=== PATIENT | male | born 1980 | race Caucasian/White ===

== ENCOUNTER 2017-03-16 03:00 | Observation (INO) | payer OTHER ==
[2017-03-16 03:28] VITALS: RESP 18
[2017-03-16] MEDS ORDERED: ASPIRIN 81 MG CHEW PO STA (03:35)
[2017-03-16] MEDS ORDERED: LISINOPRIL 10 MG TAB PO STA (03:36)
--- NOTE | 2017-03-16 03:39 | ED ---
Recheck HPI - General Source: patient, RN notes reviewed Mode of arrival: ambulatory Limitations: no limitations <Jeremie Beltran - Last Filed: 03/16/17 03:37> <Keyon Astorga - Last Filed: 03/16/17 05:31> - General Chief Complaint: Recheck/Abnormal Lab/Rx Stated Complaint: Hypertension Time Seen by Provider: 03/16/17 03:31 - History of Present Illness Initial Comments: this is a 36-year-old male presents emergency Department chief complaint of hypertension, chest tightness. Patient states that he checked his blood pressure this evening because he felt very flushed in his face. Patient states this is placed on the past was had high blood pressure. Patient states that he used to be on medication that he is not exactly sure what it was he states this started over the now maybe Lopressor or lisinopril. Patient states a this dietary modifications and that he got off his blood pressure medication. Patient does state at this time he has a little bit of chest pressure or tightness and which she contributes this to using a Rototiller today. Patient denies any shortness of breath, headache, dizziness, nausea, vomiting. Patient states that the has no history of hyperlipidemia, diabetes or smoking history. Patient states he does not have a family history heart disease. (Jeremie Beltran) - Related Data Allergies Allergy/AdvReac Type Severity Reaction Status Date / Time Iodine and Iodide Containing Allergy Nausea & Verified 03/16/17 03:28 Produc Vomiting Review of Systems ROS Other: All systems not noted in ROS Statement are negative. <Jeremie Beltran - Last Filed: 03/16/17 03:37> ROS Other: All systems not noted in ROS Statement are negative. <Keyon Astorga - Last Filed: 03/16/17 05:31> ROS Statement: Those systems with pertinent positive or pertinent negative responses have been documented in the HPI. Past Medical History Past Medical History: Hypertension History of Any Multi-Drug Resistant Organisms: None Reported Past Surgical History: No Surgical Hx Reported Past Psychological History: Anxiety Smoking Status: Never smoker Past Alcohol Use History: Heavy Past Drug Use History: None Reported <Jeremie Beltran - Last Filed: 03/16/17 03:37> General Exam Limitations: no limitations General appearance: alert, in no apparent distress Neck exam: Present: normal inspection, full ROM. Absent: tenderness, meningismus, lymphadenopathy Respiratory exam: Present: normal lung sounds bilaterally. Absent: respiratory distress, wheezes, rales, rhonchi, stridor, chest wall tenderness Cardiovascular Exam: Present: regular rate, normal rhythm, normal heart sounds. Absent: systolic murmur, diastolic murmur, rubs, gallop, clicks GI/Abdominal exam: Present: soft, normal bowel sounds. Absent: distended, tenderness, guarding, rebound, rigid Neurological exam: Present: alert, oriented X3, CN II-XII intact <Jeremie Beltran - Last Filed: 03/16/17 03:37> Medical Decision Making <Jeremie Beltran - Last Filed: 03/16/17 03:37> - Lab Data Result diagrams: 03/16/17 03:50 03/16/17 03:50 - Radiology Data Radiology results: image reviewed (Chest x-ray shows no definite focal consolidation) <Keyon Astorga - Last Filed: 03/16/17 05:31> - Medical Decision Making Patient reexamined and resting comfortably in bed. Patient symptom-free at this time. Patient updated on results and plan. Case discussed with practitioner project manager/team coach, who will admit for Dr. Shetty, covering for hospital call. ( Keyon Astorga) - Lab Data Lab Results 03/16/17 03/16/17 03/16/17 Range/Units 03:50 03:50 03:50 WBC 9.8 (3.8-10.6) k/uL RBC 5.11 (4.30-5.90) m/uL Hgb 16.4 (13.0-17.5) gm/dL Hct 46.8 (39.0-53.0) % MCV 91.6 (80.0-100.0) fL MCH 32.1 (25.0-35.0) pg MCHC 35.0 (31.0-37.0) g/dL RDW 12.8 (11.5-15.5) % Plt Count 328 (150-450) k/uL Neutrophils % 64 % Lymphocytes % 29 % Monocytes % 6 % Eosinophils % 0 % Basophils % 0 % Neutrophils # 6.3 (1.3-7.7) k/uL Lymphocytes # 2.8 (1.0-4.8) k/uL Monocytes # 0.5 (0-1.0) k/uL Eosinophils # 0.0 (0-0.7) k/uL Basophils # 0.0 (0-0.2) k/uL PT (9.0-12.0) sec INR (<1.1) APTT (22.0-30.0) sec Sodium 141 (137-145) mmol/L Potassium 4.2 (3.5-5.1) mmol/L Chloride 102 (98-107) mmol/L Carbon Dioxide 24 (22-30) mmol/L Anion Gap 15 mmol/L BUN 14 (9-20) mg/dL Creatinine 0.92 (0.66-1.25) mg/dL Est GFR (MDRD) Af Amer >60 (>60 ml/min/1.73 sqM) Est GFR (MDRD) Non-Af >60 (>60 ml/min/1.73 sqM) Glucose 113 H (74-99) mg/dL Calcium 9.6 (8.4-10.2) mg/dL Magnesium 1.6 (1.6-2.3) mg/dL Total Bilirubin 0.6 (0.2-1.3) mg/dL AST 22 (17-59) U/L ALT 38 (21-72) U/L Alkaline Phosphatase 60 (38-126) U/L Total Creatine Kinase 107 (55-170) U/L CK-MB (CK-2) 0.9 (0.0-2.4) ng/mL CK-MB (CK-2) Rel Index 0.8 Troponin I <0.012 (0.000-0.034) ng/mL Total Protein 7.8 (6.3-8.2) g/dL Albumin 4.7 (3.5-5.0) g/dL 03/16/17 Range/Units 03:50 WBC (3.8-10.6) k/uL RBC (4.30-5.90) m/uL Hgb (13.0-17.5) gm/dL Hct (39.0-53.0) % MCV (80.0-100.0) fL MCH (25.0-35.0) pg MCHC (31.0-37.0) g/dL RDW (11.5-15.5) % Plt Count (150-450) k/uL Neutrophils % % Lymphocytes % % Monocytes % % Eosinophils % % Basophils % % Neutrophils # (1.3-7.7) k/uL Lymphocytes # (1.0-4.8) k/uL Monocytes # (0-1.0) k/uL Eosinophils # (0-0.7) k/uL Basophils # (0-0.2) k/uL PT 11.2 (9.0-12.0) sec INR 1.1 (<1.1) APTT 24.2 (22.0-30.0) sec Sodium (137-145) mmol/L Potassium (3.5-5.1) mmol/L Chloride (98-107) mmol/L Carbon Dioxide (22-30) mmol/L Anion Gap mmol/L BUN (9-20) mg/dL Creatinine (0.66-1.25) mg/dL Est GFR (MDRD) Af Amer (>60 ml/min/1.73 sqM) Est GFR (MDRD) Non-Af (>60 ml/min/1.73 sqM) Glucose (74-99) mg/dL Calcium (8.4-10.2) mg/dL Magnesium (1.6-2.3) mg/dL Total Bilirubin (0.2-1.3) mg/dL AST (17-59) U/L ALT (21-72) U/L Alkaline Phosphatase (38-126) U/L Total Creatine Kinase (55-170) U/L CK-MB (CK-2) (0.0-2.4) ng/mL CK-MB (CK-2) Rel Index Troponin I (0.000-0.034) ng/mL Total Protein (6.3-8.2) g/dL Albumin (3.5-5.0) g/dL 03/16/17 03:39 EKG performed at 3:28 normal sinus rhythm with a rate of 96 WA interval 134 QS duration 84 QT/QTC 348/439 (Jeremie Beltran) Disposition <Jeremie Beltran - Last Filed: 03/16/17 03:37> Decision Time: 05:31 <Keyon Astorga - Last Filed: 03/16/17 05:31> Clinical Impression: Hypertension, Chest pain Disposition: ADMITTED IP TO THIS [facility] Referrals: Nonstaff,Physician [Primary Care Provider] - 1-2 days
[2017-03-16 04:00] LABS: Basophils % (A) 0 %; Eosinophils % (A) 0 %; HCT 46.8 % (39.0-53.0); HDW 2.38; HGB 16.4 gm/dL (13.0-17.5); Luc # (Auto) 0.13; Luc % (Auto) 1; Lymphocytes # (A) 2.8 k/uL (1.0-4.8); Lymphocytes % (A) 29 %; MCH 32.1 pg (25.0-35.0); MCV 91.6 fL (80.0-100.0); Mean Platelet Volume 6.3; Monocytes # (A) 0.5 k/uL (0-1.0); Monocytes % (A) 6 %; Neutrophils # (A) 6.3 k/uL (1.3-7.7); Neutrophils % (A) 64 %; RBC 5.11 m/uL (4.30-5.90); RDW 12.8 % (11.5-15.5); WBC 9.8 k/uL (3.8-10.6); WBC (Perox) 9.13
[2017-03-16 04:10] LABS: ALT 38 U/L (21-72); AST 22 U/L (17-59); Alkaline Phosphatase 60 U/L (38-126); Anion Gap 15 mmol/L; Blood Urea Nitrogen 14 mg/dL (9-20); Calcium 9.6 mg/dL (8.4-10.2); Carbon Dioxide 24 mmol/L (22-30); Chloride 102 mmol/L (98-107); Glucose 113 mg/dL (74-99); Magnesium 1.6 mg/dL (1.6-2.3); Non-African American GFR(MDRD) >60 (>60 ml/min/1.73 sqM); Potassium 4.2 mmol/L (3.5-5.1); Sodium 141 mmol/L (137-145); Total Bilirubin 0.6 mg/dL (0.2-1.3); Total Protein 7.8 g/dL (6.3-8.2)
[2017-03-16 04:23] LABS: Creatine Kinase 107 U/L (55-170)
[2017-03-16 04:35] LABS: Creatine Kinase MB 0.9 ng/mL (0.0-2.4); Troponin I <0.012 ng/mL (0.000-0.034)
[2017-03-16 04:53] LABS: INR 1.1 (<1.1); Partial Thromboplastin Time 24.2 sec (22.0-30.0); Prothrombin Time 11.2 sec (9.0-12.0)
--- NOTE | 2017-03-16 05:21 | XR ---
Exam: XR CXR 2 VIEWS History: Chest pain. Comparison: None provided. Technique: Frontal and lateral views. Findings: There is mild thickening of interstitial lung markings at the lower lobes, right greater than left. This may be accentuated by low lung volumes. However, bronchiolitis or mild interstitial edema is not entirely ruled out. No definite focal consolidation. Cardiomediastinal silhouette is unremarkable. Impression: Question interstitial thickening or atelectasis in the lower lobes. No definite focal consolidation.
[2017-03-16] MEDS ORDERED: NITROGLYCERIN SL TABS 0.4 MG TAB SUBLINGUAL PRN (05:31)
[2017-03-16] MEDS: NITROGLYCERIN OINT 1 INCH/GM PACKET TOPICAL SCH ×2 (06:22→12:56)
[2017-03-16 11:06] LABS: Creatine Kinase 77 U/L (55-170)
[2017-03-16 11:19] LABS: Creatine Kinase MB 0.8 ng/mL (0.0-2.4); Troponin I <0.012 ng/mL (0.000-0.034)
[2017-03-16 11:55] VITALS: BP 127/79; PULSE 79; TEMP 98.3
--- NOTE | 2017-03-16 18:28 | P.HPIM ---
History of Present Illness H&P Date: 03/16/17 (dc summary) 36-year-old gentleman with previous diagnosis of hypertension however stopped taking his medication due to side effects comes in to the hospital with complains of chest pressure midsternal in location last about 2-5 minutes nonradiating in nature. Patient states that his blood pressure around that time was 180 systolic or 90 diastolic Denies having previous episodes of the symptoms EKG in the emergency room shows voltage criteria for LVH no other ST elevations or depressions were noted Troponins were negative During the time of my evaluation patient states that he is symptom-free Denies having headaches nausea vomiting diarrhea Patient does state that he has had some relief with nitroglycerin however no other typical features of chest pain were reported Review of Systems All systems: negative (Noted in HPI) Past Medical History Past Medical History: Hypertension History of Any Multi-Drug Resistant Organisms: None Reported Past Surgical History: No Surgical Hx Reported Past Anesthesia/Blood Transfusion Reactions: No Reported Reaction Past Psychological History: Anxiety Additional Psychological History / Comment(s): seasonal affective disorder - takes pristiq Smoking Status: Never smoker Past Alcohol Use History: Heavy Additional Past Alcohol Use History / Comment(s): pt states he went thru detox a month ago. he states his last drink was last week. denies sx of DT's Past Drug Use History: None Reported - Past Family History Father Family Medical History: Hypertension Medications and Allergies Home Medications Medication Instructions Recorded Confirmed Type Desvenlafaxine Succinate [Pristiq] 50 mg PO DAILY 03/16/17 03/16/17 History Dextroamphetamine/Amphetamine 20 mg PO TID 03/16/17 03/16/17 History [Adderall] Allergies Allergy/AdvReac Type Severity Reaction Status Date / Time Iodine and Iodide Containing Allergy Nausea & Verified 03/16/17 08:10 Produc Vomiting Physical Exam Vitals: Vital Signs Temp Pulse Pulse Resp BP BP Pulse Ox 03/16/17 11:52 98.3 F 79 18 127/79 94 L 03/16/17 07:46 97.6 F 90 18 142/81 95 03/16/17 06:34 88 18 03/16/17 06:08 97.9 F 90 18 149/96 95 03/16/17 05:19 98.4 F 90 18 144/95 03/16/17 04:49 88 18 146/97 96 03/16/17 04:19 88 18 158/91 97 03/16/17 03:51 92 18 155/102 97 03/16/17 03:22 97.9 F 98 18 165/110 99 Intake and Output 03/16/17 03/16/17 03/16/17 06:59 14:59 22:59 Intake Total 240 Balance 240 Intake: Oral 240 Other: Voiding Method Toilet Toilet Weight 95.254 kg Physical exam Gen. appearance oriented 3 in no distress Neck is supple no JVD Lungs good air entry clear to auscultation no rhonchi or wheezing Heart S1-S2 heard regular rate and rhythm no murmurs appreciated Abdomen is soft nontender no organomegaly bowel sounds are intact Neurologically cranial nerves II-12 grossly intact no focal motor or sensory deficits noted Skin no abnormalities appreciated Results CBC & Chem 7: 03/16/17 03:50 03/16/17 03:50 Labs: Abnormal Lab Results - Last 24 Hours (Table) 03/16/17 Range/Units 03:50 Glucose 113 H (74-99) mg/dL Thrombosis Risk Factor Assmnt - Choose All That Apply Each Factor Represents 1 point: Obesity (BMI >25) Thrombosis Risk Factor Assessment Total Risk Factor Score: 1 Thrombosis Risk Factor Assessment Level: Low Risk Assessment and Plan Plan: #1 atypical chest pain ACS is ruled out #2 accelerated hypertension with symptoms Plan Patient also has a history of alcohol overuse We'll start the patient on antihypertensive medication with some atypical features patient is recommended to follow-up with his primary care doctor or Dr. Jayden MALONE KH Would benefit from an outpatient stress test as patient does show voltage criteria and does have some underlying hypertension for longer of time and is not very physically active patient is discharged home in a stable condition was able to ambulate without any reproducibility of symptoms
[2017-03-17] MEDS ORDERED: ASPIRIN 325 MG TAB PO SCH (09:00)
--- NOTE | 2017-03-18 21:06 | CONS ---
Mr. Valdovinos is a 36-year-old gentleman who came to the emergency room with the complaint of hypertension. Patient gives a history that when he went home he was not feeling good; he was out of it; and he checked his blood pressure, which was 170/112. He was flushed. He had some tightness in the chest. Patient does have a prior history of hypertension. He took medication for a short time. Subsequently the patient stopped taking medication. He denied any headaches. He denies any exertional chest pain. He is moderately active physically. The patient does have a prior history of alcohol abuse, but he underwent a detoxification program about 6 weeks ago. The patient denies any prior history of myocardial infarction. He says he was given Lopressor and he did not like it , so he stopped taking it. The patient does not know about his cholesterol. Past medical history includes a history of hypertension, history of anxiety. SMOKING STATUS: Patient was never a smoker. PHYSICAL EXAMINATION AT PRESENT: This is a 36-year-old mildly obese gentleman who does not appear to be in any acute distress. The patient's blood pressure is 127/79 mmHg. Heart rate is 80 per minute. HEAD/ENT: Examination is negative. Neck is supple. There is no increase in jugular venous pressure. Both the carotid pulses are felt. There is no bruit. Chest is symmetrical. HEART: The PMI is not felt. First and second heart sounds are normal. There is no evidence of any murmur. Lungs are clinically clear to auscultation and percussion. Abdomen is soft. Liver and spleen are not enlarged. Bowel sounds are heard. EXTREMITIES: Peripheral pulsations are 2+. EKG shows normal sinus rhythm without any acute ischemic changes. The patient's electrolytes are normal. Patient's 2 sets of troponins are normal. FINAL IMPRESSION: This patient was primarily admitted with uncontrolled hypertension. He had some atypical chest discomfort. Discussed the various treatment options with the patient. Patient can be discharged home on Lotrel 5/ 10 mg daily. We will follow up his blood pressure as an outpatient and subsequently the patient will be evaluated with a stress test. ANA
== END 2017-03-16 15:45 | disposition home or self-care (01) ==
LOC: EC 03:00 → 3OBS 05:31
PROVIDERS: ADMIT Hospitalist; ATTEND Hospitalist
DX: I10 Essential (primary) hypertension (principal); R07.89 Other chest pain; F41.9 Anxiety disorder, unspecified; F39 Unspecified mood [affective] disorder; Z82.49 Family history of ischemic heart disease and other diseases of the circulatory system
CPT/HCPCS: 99284 ×2; 36415; 93005; 80053; 82550; 82553; 83735; 84484; 85025; 85610; 85730; 71020; G0378

== ENCOUNTER 2018-08-01 16:27 | Emergency (ER) | payer BC, OTHER ==
[2018-08-01] MEDS ORDERED: SODIUM CHLORIDE 0.9% 500 ML 500 ML IV ONE (18:46)
--- NOTE | 2018-08-01 19:29 | ED ---
General Adult HPI - General Chief complaint: Recheck/Abnormal Lab/Rx Stated complaint: High BP/right arm tingling Time Seen by Provider: 08/01/18 18:17 Source: patient Mode of arrival: ambulatory Limitations: no limitations - History of Present Illness Initial comments: 38-year-old male patient presents to the emergency department today for evaluation of right arm pain, right arm fatigue, and elevated blood pressure. Patient states that he does have history of elevated blood pressure, was able to control it with diet so did stop his blood pressure medication quite some time ago. Patient states that he has been feeling like his blood pressures elevated states been monitoring it over the last several weeks. States he has had elevated blood pressures mostly in the 140s systolic over 90s diastolic. Patient states that today his blood pressure was in the 180s systolic over 117 diastolic. Patient states he was also been having pain and cramping to the right arm for the last few weeks however today started having spasms in the tricep region. States that his arm feels fatigued and weak. States he was having some tingling to the fingertips and arm. Patient states that he did write cleaves all weekend and the spasming started after this. Patient states he did have an injury to the arm about a year ago and has been having some pain and issues since. He denies any fever, chills, arm swelling, areas of redness or tenderness. He denies any chest pain, shortness of breath, headache, blurred vision, double vision, dizziness, or lower extremity weakness. Patient denies any recent rash, abdominal pain, nausea, vomiting, diarrhea, constipation , back pain, hematuria, dysuria, urinary urgency, urinary frequency, or any other complaints. - Related Data Home Medications Medication Instructions Recorded Confirmed Dextroamphetamine/Amphetamine 25 mg PO QAM 08/01/18 08/01/18 [Adderall Xr] Previous Rx's Medication Instructions Recorded Metoprolol Tartrate [Lopressor] 12.5 mg PO BID #30 dose 08/01/18 Allergies Allergy/AdvReac Type Severity Reaction Status Date / Time Iodine and Iodide Containing Allergy Nausea & Verified 08/01/18 18:23 Produc Vomiting Review of Systems ROS Statement: Those systems with pertinent positive or pertinent negative responses have been documented in the HPI. ROS Other: All systems not noted in ROS Statement are negative. Past Medical History Past Medical History: Hypertension History of Any Multi-Drug Resistant Organisms: None Reported Past Surgical History: No Surgical Hx Reported Past Anesthesia/Blood Transfusion Reactions: No Reported Reaction Past Psychological History: Anxiety Smoking Status: Never smoker Past Alcohol Use History: Occasional Past Drug Use History: None Reported - Past Family History Father Family Medical History: Hypertension General Exam Limitations: no limitations General appearance: alert, in no apparent distress, other (This is a well- developed, well-nourished adult male patient in no acute distress. Vital signs upon presentation are temperature 98.3F, pulse 90, respirations 20, blood pressure 162/121, pulse ox 100% on room air.) Eye exam: Present: normal appearance, PERRL, EOMI. Absent: scleral icterus, conjunctival injection, nystagmus, periorbital swelling ENT exam: Present: normal exam, normal oropharynx, mucous membranes moist Neck exam: Present: normal inspection. Absent: tenderness, meningismus, lymphadenopathy Respiratory exam: Present: normal lung sounds bilaterally. Absent: respiratory distress, wheezes, rales, rhonchi, stridor Cardiovascular Exam: Present: regular rate, normal rhythm, normal heart sounds. Absent: systolic murmur, diastolic murmur, rubs, gallop, clicks GI/Abdominal exam: Present: soft, normal bowel sounds. Absent: distended, tenderness, guarding, rebound, rigid Neurological exam: Present: alert, oriented X3, CN II-XII intact, other ( Strength in all 4 extremities is 5/5.) Psychiatric exam: Present: normal affect, normal mood Skin exam: Present: warm, dry, intact, normal color. Absent: rash Course Vital Signs 08/01/18 08/01/18 08/01/18 16:43 19:53 21:42 Temperature 98.3 F 98.0 F Pulse Rate 90 85 90 Respiratory 20 18 18 Rate Blood Pressure 162/121 145/105 151/113 O2 Sat by Pulse 100 98 98 Oximetry EKG Findings - EKG Comments: EKG Findings:: EKG obtained at 1824 shows normal sinus rhythm with a ventricular rate of 88, SD interval 152, QRS duration 84, QT 358, QTC 433. No evidence of ST elevation or depression. Medical Decision Making - Medical Decision Making 38-year-old male patient presented to the emergency department today for evaluation of right arm spasms elevated blood pressure. Physical examination did reveal good neurovascular and neurologic status of the right arm. Patient is neurologically intact otherwise. Labs reviewed and are unremarkable. Patient was given metoprolol here in the department. Upon reevaluation patient is feeling well and is requesting to be discharged. We'll give him a prescription for metoprolol 12.5 mg take twice daily. He is instructed follow up with his primary care physician for recheck as soon as possible to discuss blood pressure management. Return parameters were discussed in detail. He verbalizes understanding and agrees with this plan. - Lab Data Result diagrams: 08/01/18 19:23 08/01/18 19:23 Lab Results 08/01/18 08/01/18 08/01/18 Range/Units 19:23 19:23 19:23 WBC 7.1 (3.8-10.6) k/uL RBC 5.11 (4.30-5.90) m/uL Hgb 15.6 (13.0-17.5) gm/dL Hct 47.1 (39.0-53.0) % MCV 92.2 (80.0-100.0) fL MCH 30.6 (25.0-35.0) pg MCHC 33.2 (31.0-37.0) g/dL RDW 12.0 (11.5-15.5) % Plt Count 360 (150-450) k/uL Neutrophils % 46 % Lymphocytes % 44 % Monocytes % 7 % Eosinophils % 1 % Basophils % 1 % Neutrophils # 3.2 (1.3-7.7) k/uL Lymphocytes # 3.1 (1.0-4.8) k/uL Monocytes # 0.5 (0-1.0) k/uL Eosinophils # 0.1 (0-0.7) k/uL Basophils # 0.0 (0-0.2) k/uL PT (9.0-12.0) sec INR (<1.2) APTT (22.0-30.0) sec Sodium 139 (137-145) mmol/L Potassium 4.5 (3.5-5.1) mmol/L Chloride 104 (98-107) mmol/L Carbon Dioxide 25 (22-30) mmol/L Anion Gap 10 mmol/L BUN 14 (9-20) mg/dL Creatinine 0.82 (0.66-1.25) mg/dL Est GFR (CKD-EPI)AfAm >90 (>60 ml/min/1.73 sqM) Est GFR (CKD-EPI)NonAf >90 (>60 ml/min/1.73 sqM) Glucose 110 H (74-99) mg/dL Calcium 9.8 (8.4-10.2) mg/dL Magnesium 2.0 (1.6-2.3) mg/dL Total Bilirubin 0.5 (0.2-1.3) mg/dL AST 38 (17-59) U/L ALT 66 (21-72) U/L Alkaline Phosphatase 74 (38-126) U/L Total Creatine Kinase 87 (55-170) U/L CK-MB (CK-2) 0.4 (0.0-2.4) ng/mL CK-MB (CK-2) Rel Index 0.5 Troponin I <0.012 (0.000-0.034) ng/mL Total Protein 8.1 (6.3-8.2) g/dL Albumin 4.6 (3.5-5.0) g/dL Urine Color Urine Appearance (Clear) Urine pH (5.0-8.0) Ur Specific [place] (1.001-1.035) Urine Protein (Negative) Urine Glucose (UA) (Negative) Urine Ketones (Negative) Urine Blood (Negative) Urine Nitrite (Negative) Urine Bilirubin (Negative) Urine Urobilinogen (<2.0) mg/dL Ur Leukocyte Esterase (Negative) Urine RBC (0-5) /hpf Urine WBC (0-5) /hpf Hyaline Casts (0-2) /lpf Urine Mucus (None) /hpf 08/01/18 08/01/18 Range/Units 19:23 19:27 WBC (3.8-10.6) k/uL RBC (4.30-5.90) m/uL Hgb (13.0-17.5) gm/dL Hct (39.0-53.0) % MCV (80.0-100.0) fL MCH (25.0-35.0) pg MCHC (31.0-37.0) g/dL RDW (11.5-15.5) % Plt Count (150-450) k/uL Neutrophils % % Lymphocytes % % Monocytes % % Eosinophils % % Basophils % % Neutrophils # (1.3-7.7) k/uL Lymphocytes # (1.0-4.8) k/uL Monocytes # (0-1.0) k/uL Eosinophils # (0-0.7) k/uL Basophils # (0-0.2) k/uL PT 9.9 (9.0-12.0) sec INR 1.0 (<1.2) APTT 23.4 (22.0-30.0) sec Sodium (137-145) mmol/L Potassium (3.5-5.1) mmol/L Chloride (98-107) mmol/L Carbon Dioxide (22-30) mmol/L Anion Gap mmol/L BUN (9-20) mg/dL Creatinine (0.66-1.25) mg/dL Est GFR (CKD-EPI)AfAm (>60 ml/min/1.73 sqM) Est GFR (CKD-EPI)NonAf (>60 ml/min/1.73 sqM) Glucose (74-99) mg/dL Calcium (8.4-10.2) mg/dL Magnesium (1.6-2.3) mg/dL Total Bilirubin (0.2-1.3) mg/dL AST (17-59) U/L ALT (21-72) U/L Alkaline Phosphatase (38-126) U/L Total Creatine Kinase (55-170) U/L CK-MB (CK-2) (0.0-2.4) ng/mL CK-MB (CK-2) Rel Index Troponin I (0.000-0.034) ng/mL Total Protein (6.3-8.2) g/dL Albumin (3.5-5.0) g/dL Urine Color Yellow Urine Appearance Clear (Clear) Urine pH 5.5 (5.0-8.0) Ur Specific [place] 1.015 (1.001-1.035) Urine Protein Negative (Negative) Urine Glucose (UA) Negative (Negative) Urine Ketones Negative (Negative) Urine Blood Trace H (Negative) Urine Nitrite Negative (Negative) Urine Bilirubin Negative (Negative) Urine Urobilinogen <2.0 (<2.0) mg/dL Ur Leukocyte Esterase Negative (Negative) Urine RBC 2 (0-5) /hpf Urine WBC <1 (0-5) /hpf Hyaline Casts 1 (0-2) /lpf Urine Mucus Few H (None) /hpf Disposition Clinical Impression: Hypertension, Muscle spasm Disposition: HOME SELF-CARE Condition: Good Instructions: Hypertension (ED), Muscle Spasm (ED) Additional Instructions: Take medications as directed. Follow up with your primary care physician for recheck and to discuss medications as soon as possible. Return immediately for any new, worsening, or concerning symptoms. Prescriptions: Metoprolol Tartrate [Lopressor] 12.5 mg PO BID #30 dose Is patient prescribed a controlled substance at d/c from ED?: No Referrals: Tomas Sosa DO [Primary Care Provider] - 1-2 days Time of Disposition: 21:14
[2018-08-01 19:32] LABS: Basophils % (A) 1 %; Eosinophils # (A) 0.1 k/uL (0-0.7); Eosinophils % (A) 1 %; HCT 47.1 % (39.0-53.0); HGB 15.6 gm/dL (13.0-17.5); Lymphocytes # (A) 3.1 k/uL (1.0-4.8); Lymphocytes % (A) 44 %; MCH 30.6 pg (25.0-35.0); MCHC 33.2 g/dL (31.0-37.0); MCV 92.2 fL (80.0-100.0); Mean Platelet Volume 6.2; Monocytes # (A) 0.5 k/uL (0-1.0); Monocytes % (A) 7 %; Neutrophils # (A) 3.2 k/uL (1.3-7.7); Neutrophils % (A) 46 %; Platelet Count 360 k/uL (150-450); RBC 5.11 m/uL (4.30-5.90); WBC 7.1 k/uL (3.8-10.6)
[2018-08-01 19:54] VITALS: RESP 18
[2018-08-01 19:58] LABS: Partial Thromboplastin Time 23.4 sec (22.0-30.0); Prothrombin Time 9.9 sec (9.0-12.0)
[2018-08-01 19:59] LABS: Appearance,Urine Clear (Clear); Bilirubin,Urine Negative (Negative); Blood,Urine Trace (Negative); Color,Urine Yellow; Glucose,Urine (UA) Negative (Negative); Hyaline Casts,Urine 1 /lpf (0-2); Ketones,Urine Negative (Negative); Leukocyte Esterase,Urine Negative (Negative); Mucus,Urine Few /hpf; Nitrite,Urine Negative (Negative); PH, Urine 5.5 (5.0-8.0); Protein,Urine Negative (Negative); RBC,Urine 2 /hpf (0-5); Specific Gravity,Urine 1.015 (1.001-1.035); Urobilinogen,Urine <2.0 mg/dL (<2.0); WBC,Urine <1 /hpf (0-5)
[2018-08-01 20:01] LABS: Creatine Kinase 87 U/L (55-170)
[2018-08-01 20:04] LABS: ALT 66 U/L (21-72); AST 38 U/L (17-59); Albumin 4.6 g/dL (3.5-5.0); Alkaline Phosphatase 74 U/L (38-126); Anion Gap 10 mmol/L; Blood Urea Nitrogen 14 mg/dL (9-20); Calcium 9.8 mg/dL (8.4-10.2); Carbon Dioxide 25 mmol/L (22-30); Chloride 104 mmol/L (98-107); Glucose 110 mg/dL (74-99); Potassium 4.5 mmol/L (3.5-5.1); Sodium 139 mmol/L (137-145); Total Bilirubin 0.5 mg/dL (0.2-1.3); Total Protein 8.1 g/dL (6.3-8.2)
[2018-08-01] MEDS ORDERED: METOPROLOL TARTRATE 12.5 MG TAB PO STA (20:08)
[2018-08-01 20:13] LABS: Creatine Kinase MB 0.4 ng/mL (0.0-2.4); Troponin I <0.012 ng/mL (0.000-0.034)
[2018-08-01 21:44] VITALS: BP 151/113; PULSE 90; TEMP 98
== END 2018-08-01 21:44 | disposition home or self-care (01) ==
LOC: EC 16:27
DX: I10 Essential (primary) hypertension (principal); M62.838 Other muscle spasm; Z82.49 Family history of ischemic heart disease and other diseases of the circulatory system; Z79.899 Other long term (current) drug therapy; Z91.048 Other nonmedicinal substance allergy status
CPT/HCPCS: 36415; 80053; 81001; 82550; 82553; 83735; 84484; 85025; 85610; 85730; 93005; 96360; 96361; 99284

== ENCOUNTER 2020-12-01 21:22 | Emergency (ER) | payer BC ==
[2020-12-01 21:32] VITALS: PULSE 89; RESP 20
--- NOTE | 2020-12-01 21:52 | ED ---
General Adult HPI - General Source: patient Mode of arrival: ambulatory Limitations: no limitations <Zana La - Last Filed: 12/01/20 21:52> <Rolo Carranza - Last Filed: 12/01/20 23:55> - General Chief complaint: Psychiatric Symptoms Stated complaint: Petition Time Seen by Provider: 12/01/20 21:34 - History of Present Illness Initial comments: Dictation was produced using [employer] dictation software. please excuse any grammatical, word or spelling errors. This patient was cared for during a federal and state declared state of emergency secondary to Covid 19 Chief Complaint: 40-year-old male with suicidal behavior. History of Present Illness: 40-year-old male he has recent personal stressors. He is accompanied by law enforcement who is petitioned patient. Patient is known to the precinct police lieutenant. Patient has been showing signs of suicidal behavior. He's been having a lot of stress with his family. He did put a belt around his neck. He did not actually harm himself. He has no medical consult this time. Enforcement was called patient is brought to the emergency department. The ROS documented in this emergency department record has been reviewed and confirmed by me. Those systems with pertinent positive or negative responses have been documented in the HPI. All other systems are other negative and/or noncontributory. PHYSICAL EXAM: General Impression: Alert and oriented x3, not in acute distress HEENT: Normocephalic atraumatic, extra-ocular movements intact, pupils equal and reactive to light bilaterally, mucous membranes moist. Cardiovascular: Heart regular rate and rhythm Chest: Able to complete full sentences, no retractions, no tachypnea Abdomen: abdomen soft, non-tender, non-distended, no organomegaly Musculoskeletal: Pulses present and equal in all extremities, no peripheral edema Motor: no focal deficits noted Neurological: CN II-XII grossly intact, no focal motor or sensory deficits noted Skin: Intact with no visualized rashes Psych: Normal affect and mood ED course:-40year-old male with suicidal behavior. The temples May. Vital signs upon arrival are within acceptable limits. Patient medically cleared for EPS evaluation. (Zana La) - Related Data Home Medications Medication Instructions Recorded Confirmed ALPRAZolam [Xanax] 0.5 mg PO BID PRN 12/01/20 12/01/20 Ergocalciferol [Vitamin D2 (1250 1,250 mcg PO TH 12/01/20 12/01/20 Mcg = 10529 Iu)] Lisdexamfetamine Dimesylate 40 mg PO DAILY 12/01/20 12/01/20 [Vyvanse] Lisinopril [Prinivil] 10 mg PO HS 12/01/20 12/01/20 Vortioxetine Hydrobromide 10 mg PO DAILY 12/01/20 12/01/20 [Trintellix] clomiPRAMINE [Anafranil] 125 mg PO DAILY 12/01/20 12/01/20 Allergies Allergy/AdvReac Type Severity Reaction Status Date / Time Iodine and Iodide Containing Allergy Nausea & Verified 12/01/20 22:12 Produc Vomiting Review of Systems ROS Other: All systems not noted in ROS Statement are negative. <Zana La - Last Filed: 12/01/20 21:52> ROS Other: All systems not noted in ROS Statement are negative. <Rolo Carranza - Last Filed: 12/01/20 23:55> ROS Statement: Those systems with pertinent positive or pertinent negative responses have been documented in the HPI. Past Medical History Past Medical History: Hypertension History of Any Multi-Drug Resistant Organisms: None Reported Past Surgical History: No Surgical Hx Reported Past Anesthesia/Blood Transfusion Reactions: No Reported Reaction Past Psychological History: Anxiety Smoking Status: Former smoker Past Alcohol Use History: Occasional Past Drug Use History: None Reported - Past Family History Father Family Medical History: Hypertension <Zana La - Last Filed: 12/01/20 21:52> General Exam Limitations: no limitations <Zana La - Last Filed: 12/01/20 21:52> Course Vital Signs 12/01/20 12/01/20 21:25 23:53 Temperature 98.6 F 98.3 F Pulse Rate 89 89 Respiratory 20 20 Rate Blood Pressure 177/117 146/109 O2 Sat by Pulse 99 99 Oximetry Medical Decision Making - Lab Data Lab Results 12/01/20 Range/Units 22:56 Urine Color Light Yellow Urine Appearance Clear (Clear) Urine pH 6.0 (5.0-8.0) Ur Specific [place] 1.009 (1.001-1.035) Urine Protein Negative (Negative) Urine Glucose (UA) Negative (Negative) Urine Ketones Negative (Negative) Urine Blood Negative (Negative) Urine Nitrite Negative (Negative) Urine Bilirubin Negative (Negative) Urine Urobilinogen <2.0 (<2.0) mg/dL Ur Leukocyte Esterase Negative (Negative) Urine Opiates Screen Not Detected (NotDetected) Ur Oxycodone Screen Not Detected (NotDetected) Urine Methadone Screen Not Detected (NotDetected) Ur Propoxyphene Screen Not Detected (NotDetected) Ur Barbiturates Screen Not Detected (NotDetected) U Tricyclic Antidepress Not Detected (NotDetected) Ur Phencyclidine Scrn Not Detected (NotDetected) Ur Amphetamines Screen Not Detected (NotDetected) U Methamphetamines Scrn Not Detected (NotDetected) U Benzodiazepines Scrn Detected H (NotDetected) Urine Cocaine Screen Not Detected (NotDetected) U Marijuana (THC) Screen Not Detected (NotDetected) Disposition <Zana La - Last Filed: 12/01/20 21:52> Is patient prescribed a controlled substance at d/c from ED?: No <Rolo Carranza - Last Filed: 12/01/20 23:55> Clinical Impression: Mood disorder, Hypertension Disposition: HOME SELF-CARE Condition: Good Instructions (If sedation given, give patient instructions): Hypertension (ED), Mood Disorders (ED) Referrals: Tomas Sosa DO [Primary Care Provider] - 1-2 days
[2020-12-01 23:22] LABS: Appearance,Urine Clear (Clear); Bilirubin,Urine Negative (Negative); Blood,Urine Negative (Negative); Color,Urine Light Yellow; Glucose,Urine (UA) Negative (Negative); Ketones,Urine Negative (Negative); Leukocyte Esterase,Urine Negative (Negative); Nitrite,Urine Negative (Negative); Protein,Urine Negative (Negative); Specific Gravity,Urine 1.009 (1.001-1.035); Urobilinogen,Urine <2.0 mg/dL (<2.0)
[2020-12-01 23:36] LABS: Amphetamine Screen,Urine Not Detected (NotDetected); Barbiturate Screen,Urine Not Detected (NotDetected); Benzodiazepines Screen,Urine Detected (NotDetected); Cocaine Screen,Urine Not Detected (NotDetected); Methadone Screen, Urine Not Detected (NotDetected); Opiate Screen,Urine Not Detected (NotDetected); Oxycodone Screen, Urine Not Detected (NotDetected); Phencyclidine Screen,Urine Not Detected (NotDetected); Tricyclic Antidepressant,Urine Not Detected (NotDetected); Urn Cannabinoid Scrn Not Detected (NotDetected)
[2020-12-01 23:54] VITALS: BP 146/109; TEMP 98.3
== END 2020-12-02 00:01 | disposition home or self-care (01) ==
LOC: EC 21:22
DX: I10 Essential (primary) hypertension (principal); F39 Unspecified mood [affective] disorder; F41.9 Anxiety disorder, unspecified; Z79.899 Other long term (current) drug therapy; Z91.048 Other nonmedicinal substance allergy status; Z87.891 Personal history of nicotine dependence
CPT/HCPCS: 80306; 81003; 82075; 99285